=== PATIENT | female | born 1945 | race Caucasian/White ===

== ENCOUNTER 2017-03-30 06:05 | Inpatient (IN) | payer OTHER, SELFPAY ==
[~2017-03-30] VITALS: Ht 167.6 cm; Wt 87.8 kg
[~2017-03-30 06:05] MED LIST: ALBU3IS INH; AZIT500 PO; CALCAVITDA PO; CALGLU500 PO; CENTRUM SILVER1 EAC2 PO; FLUSAL5005 INH; PRED10; TIOT18 INH
[2017-03-30 06:48] LABS: Hematocrit 37.3 % (33.0-51.0); Hemoglobin 11.6 g/dL (11.5-16.0); Mean Corpuscular HGB Conc 31.1 g/dL (31.5-36.5); Mean Corpuscular Volume 103 fL (80-100); RDW Coefficient Variation 11.9 % (11.7-14.2); RDW Standard Deviation 44.9 fL (35.1-46.3); Red Blood Cell Count 3.62 M/mm3 (3.80-5.20); White Blood Cell Count 12.35 K/mm3 (4.00-11.30)
[2017-03-30 06:54] LABS: Mean Platelet Volume 9.8 fL (9.1-12.4); Platelet Count 179 K/mm3 (150-400)
[2017-03-30 06:56] LABS: International Normalized Ratio 1.05; Prothrombin Time Results 10.9 Sec (9.7-11.5)
[2017-03-30 06:56] LABS: pH Blood Arterial 7.22 (7.35-7.45)
[2017-03-30 06:57] LABS: PCO2 Arterial 97.7 mmHg (35-45)
[2017-03-30 07:03] LABS: Alanine Aminotransfer (ALT/SGP 40 U/L (12-78); Albumin/Globulin Ratio 0.6 (0.8-1.8); Alk Phos 98 U/L (50-136); Anion Gap 4 mmol/L (6-16); Aspartate Aminotrans (AST/SGOT 34 U/L (12-37); Bilirubin, Total 0.5 mg/dL (0.1-1.0); Blood Urea Nitrogen 19 mg/dL (8-24); Bun/Creatinine Ratio 22.7 (12.0-20.0); CO2, Blood 35 mmol/L (21-32); Calcium, Blood 9.5 mg/dL (8.5-10.1); Chloride, Blood 101 mmol/L (98-108); Creatinine, Blood 0.84 mg/dL (0.40-1.00); Globulin, Blood 4.7 g/dL (2.2-4.0); Glomerular Filtration Rate >60 (60-); Glucose, Blood 208 mg/dL (70-99); Potassium, Blood 4.6 mmol/L (3.5-5.5); Sodium, Blood 140 mmol/L (136-145); Total Protein, Blood 7.7 g/dL (6.4-8.2); Troponin I <0.015 ng/mL (0.000-0.040)
[2017-03-30 07:13] LABS: BAND PERCENT MAN 11 % (0-8); BASOPHILS PERCENT MAN 0 % (0-2); EOSINOPHILS PERCENT MAN 0 % (0-6); LYMPHOCYTES ABSOLUTE MAN 1.35 K/mm3 (0.84-5.20); LYMPHOCYTES PERCENT MAN 11 % (21-46); MONOCYTES ABSOLUTE MAN 0.98 K/mm3 (0.16-1.47); MONOCYTES PERCENT MAN 8 % (4-13); SEG NEUTROPHILS PERCENT MAN 70 % (41-73); TOTAL CELLS COUNTED 100
[2017-03-30 07:24] LABS: Source, Urine Catheter
[2017-03-30 07:41] LABS: Bilirubin, Urine Neg (Neg); Blood, Urine 3+ (Neg); Glucose Qualitative, Urine 2+ (Neg); Ketones, Urine 1+ (Neg); Leukocyte Esterase, Urine Neg (Neg); Nitrite, Urine Neg (Neg); Protein, Urine 3+ (Neg); Urobilinogen, Urine NORM (Normal)
[2017-03-30 07:56] LABS: Influenza A Negative (NEGATIVE); Influenza B Negative (NEGATIVE)
[2017-03-30 07:59] LABS: Appearance, Urine Clear (Clear); Color, Urine Yellow (P-Yellow)
[2017-03-30 08:01] LABS: Amorphous Light (0-Heavy); Bacteria Few /hpf; Red Blood Cells, Urine 0-2 /hpf (0-2); Squamous Epithelial Cells Few /hpf (Few); White Blood Cells, Urine 0-2 /hpf (0-5)
[2017-03-30 08:02] LABS: Hyaline Casts 0-2 /lpf (0-2)
[2017-03-30] MEDS ORDERED: FURO20 PO (10:35)
[2017-03-30] MEDS ORDERED: POTCHL10ER (10:36)
[2017-03-30 16:25] LABS: PCO2 Arterial 96 mmHg (35-45); PO2 Arterial 62.5 mmHg (80-100)
[2017-03-30 17:05] LABS: PCO2 Arterial 81.6 mmHg (35-45); PO2 Arterial 96.3 mmHg (80-100); pH Blood Arterial 7.27 (7.35-7.45)
[2017-03-31 03:40] LABS: BASOPHILS ABSOLUTE AUTO 0.02 K/mm3 (0.00-0.23); BASOPHILS PERCENT AUTO 0 % (0-2); Hematocrit 33.3 % (33.0-51.0); Hemoglobin 10.5 g/dL (11.5-16.0); LYMPHOCYTES ABSOLUTE AUTO 0.56 K/mm3 (0.84-5.20); LYMPHOCYTES PERCENT AUTO 5 % (21-46); MONOCYTES ABSOLUTE AUTO 0.89 K/mm3 (0.16-1.47); MONOCYTES PERCENT AUTO 9 % (4-13); Mean Corpuscular HGB 31.6 pg (26.0-34.0); Mean Corpuscular HGB Conc 31.5 g/dL (31.5-36.5); Mean Platelet Volume 10.1 fL (9.1-12.4); Platelet Count 191 K/mm3 (150-400); RDW Coefficient Variation 11.8 % (11.7-14.2); RDW Standard Deviation 43.4 fL (35.1-46.3); Red Blood Cell Count 3.32 M/mm3 (3.80-5.20); White Blood Cell Count 10.28 K/mm3 (4.00-11.30)
[2017-03-31 03:42] LABS: EOSINOPHILS PERCENT AUTO 0 % (0-6); IMMATURE GRAN ABSOLUTE AUTO 0.07 K/mm3 (0.00-0.10); IMMATURE GRAN PERCENT AUTO 1 % (0-1); Mean Corpuscular Volume 100 fL (80-100); NEUTROPHILS ABSOLUTE AUTO 8.74 K/mm3 (1.96-9.15); NEUTROPHILS PERCENT AUTO 85 % (41-73)
[2017-03-31 03:56] LABS: Anion Gap 4 mmol/L (6-16); Blood Urea Nitrogen 24 mg/dL (8-24); CO2, Blood 37 mmol/L (21-32); Calcium, Blood 9.5 mg/dL (8.5-10.1); Chloride, Blood 99 mmol/L (98-108); Creatinine, Blood 0.83 mg/dL (0.40-1.00); Glomerular Filtration Rate >60 (60-); Glucose, Blood 226 mg/dL (70-99); Potassium, Blood 4.2 mmol/L (3.5-5.5); Sodium, Blood 140 mmol/L (136-145)
[2017-03-31 04:43] LABS: PCO2 Arterial 64.5 mmHg (35-45); PO2 Arterial 75.3 mmHg (80-100); pH Blood Arterial 7.39 (7.35-7.45)
[2017-04-02 04:36] LABS: Hematocrit 36.3 % (33.0-51.0); Hemoglobin 11.6 g/dL (11.5-16.0); Mean Corpuscular HGB 31.7 pg (26.0-34.0); Mean Corpuscular Volume 99 fL (80-100); Mean Platelet Volume 9.8 fL (9.1-12.4); NRBC ABSOLUTE 0.03 K/mm3 (0.00-0.02); NRBC Auto 0.2 /100 WBC (0.0-0.2); Platelet Count 230 K/mm3 (150-400); RDW Coefficient Variation 11.9 % (11.7-14.2); RDW Standard Deviation 43.6 fL (35.1-46.3); Red Blood Cell Count 3.66 M/mm3 (3.80-5.20); White Blood Cell Count 13.74 K/mm3 (4.00-11.30)
[2017-04-02 04:55] LABS: Anion Gap 4 mmol/L (6-16); Blood Urea Nitrogen 34 mg/dL (8-24); Bun/Creatinine Ratio 40.3 (12.0-20.0); CO2, Blood 37 mmol/L (21-32); Calcium, Blood 9.1 mg/dL (8.5-10.1); Chloride, Blood 100 mmol/L (98-108); Creatinine, Blood 0.84 mg/dL (0.40-1.00); Glomerular Filtration Rate >60 (60-); Glucose, Blood 249 mg/dL (70-99); Potassium, Blood 4.2 mmol/L (3.5-5.5); Sodium, Blood 141 mmol/L (136-145)
[2017-04-02 05:12] LABS: BAND PERCENT MAN 1 % (0-8); BASOPHILS PERCENT MAN 0 % (0-2); EOSINOPHILS PERCENT MAN 0 % (0-6); LYMPHOCYTES ABSOLUTE MAN 1.23 K/mm3 (0.84-5.20); LYMPHOCYTES PERCENT MAN 9 % (21-46); METAMYELOCYTE ABSOLUTE MAN 0.13 K/mm3 (0.00-0.00); METAMYELOCYTE PERCENT MAN 1 % (0-0); MONOCYTES ABSOLUTE MAN 1.23 K/mm3 (0.16-1.47); MONOCYTES PERCENT MAN 9 % (4-13); MYELOCYTE ABSOLUTE MAN 0.13 K/mm3 (0.00-0.00); MYELOCYTE PERCENT MAN 1 % (0-0); NEUTROPHILS ABSOLUTE MAN 10.99 K/mm3 (1.96-9.15); SEG NEUTROPHILS PERCENT MAN 79 % (41-73); TOTAL CELLS COUNTED 100
[2017-04-04] MEDS ORDERED: Augmentin 875-1 EACH PO (11:33)
[2017-04-04] MEDS ORDERED: Anusol-HC 2.5%30 GM PR (11:34)
[2017-04-04] MEDS ORDERED: METO50ER PO (11:35)
[2017-04-04] MEDS ORDERED: Micro-K10 MEQ PO (11:35)
[2017-04-04] MEDS ORDERED: XARELTO20 MG PO (11:36)
[2017-04-04] MEDS ORDERED: PRED20 PO (11:43)
[2017-04-04] MEDS ORDERED: METF500C PO (11:44)
[2017-04-04] MEDS ORDERED: PRED10 (12:06)
== END 2017-04-04 15:54 | disposition home health service (06) | DRG 193 ==
LOC: ER 06:05 → MEDS 09:00 → PCU 09:48 → MEDS 09:54 → PCU 16:42 → MEDS 04-03 14:25 → ENPENDDIS 04-04 10:09 → MEDS 04-04 15:54
PROVIDERS: Emergency Medicine; Hospitalist
PROC: 5A09357 Assistance with Respiratory Ventilation, Less than 24 Consecutive Hours, Continuous Positive Airway Pressure (ICD-10-PCS; principal; 2017-03-30)
DX: J15.4 Pneumonia due to other streptococci (principal); J96.22 Acute and chronic respiratory failure with hypercapnia; J96.21 Acute and chronic respiratory failure with hypoxia; I50.33 Acute on chronic diastolic (congestive) heart failure; J44.0 Chronic obstructive pulmonary disease with (acute) lower respiratory infection; J44.1 Chronic obstructive pulmonary disease with (acute) exacerbation; E11.65 Type 2 diabetes mellitus with hyperglycemia; T38.0X5A Adverse effect of glucocorticoids and synthetic analogues, initial encounter; I48.91 Unspecified atrial fibrillation; I11.0 Hypertensive heart disease with heart failure; Z99.81 Dependence on supplemental oxygen; Z87.891 Personal history of nicotine dependence; Z79.899 Other long term (current) drug therapy; Z88.5 Allergy status to narcotic agent
CPT/HCPCS: 36415; 36600; 51702; 71045; 80048; 80053; 81001; 82803; 82947; 83036; 83605; 83880; 84484; 85025; 85610; 87040; 87070; 87077; 87185; 87205; 87804; 93005; 93010; 93308; 93321; 94010; 94640; 94644; 94660; 94664; 94667; 94760; 94762; 96361; 96365; 96368; 98960; 99285; J0456; J0696; J1650; J1815; J1940; J2920; J7030; J7050

== ENCOUNTER 2018-03-22 20:16 | Inpatient (IN) | payer OTHER ==
[~2018-03-22] VITALS: Ht 162.6 cm; Wt 82.2 kg
[~2018-03-22 20:16] MED LIST changes: +Anusol-HC 2.5%30 GM PR; +Augmentin 875-1 EACH PO; +FURO20 PO; +METF500C PO; +METO50ER PO; +Micro-K10 MEQ PO; +POTCHL10ER; +PRED20 PO; +XARELTO20 MG PO
[2018-03-22 21:16] LABS: BASOPHILS ABSOLUTE AUTO 0.05 K/mm3 (0.00-0.23); BASOPHILS PERCENT AUTO 1 % (0-2); EOSINOPHILS PERCENT AUTO 2 % (0-6); Hematocrit 38.8 % (33.0-51.0); Hemoglobin 11.7 g/dL (11.5-16.0); IMMATURE GRAN ABSOLUTE AUTO 0.02 K/mm3 (0.00-0.10); IMMATURE GRAN PERCENT AUTO 0 % (0-1); LYMPHOCYTES ABSOLUTE AUTO 1.77 K/mm3 (0.84-5.20); LYMPHOCYTES PERCENT AUTO 20 % (21-46); MONOCYTES ABSOLUTE AUTO 0.78 K/mm3 (0.16-1.47); MONOCYTES PERCENT AUTO 9 % (4-13); Mean Corpuscular HGB 32.1 pg (26.0-34.0); Mean Corpuscular HGB Conc 30.2 g/dL (31.5-36.5); Mean Corpuscular Volume 106 fL (80-100); Mean Platelet Volume 9.3 fL (9.1-12.4); NEUTROPHILS ABSOLUTE AUTO 6.07 K/mm3 (1.96-9.15); NEUTROPHILS PERCENT AUTO 68 % (41-73); Platelet Count 204 K/mm3 (150-400); RDW Coefficient Variation 12.4 % (11.7-14.2); RDW Standard Deviation 48.5 fL (35.1-46.3); Red Blood Cell Count 3.65 M/mm3 (3.80-5.20); White Blood Cell Count 8.89 K/mm3 (4.00-11.30)
[2018-03-22 21:38] LABS: Albumin, Blood 3.5 g/dL (3.4-5.0); Albumin/Globulin Ratio 0.9 (0.8-1.8); Bilirubin, Total 0.3 mg/dL (0.1-1.0); Bun/Creatinine Ratio 17.5 (12.0-20.0); Calcium, Blood 9.7 mg/dL (8.5-10.1); Creatinine, Blood 1.03 mg/dL (0.40-1.00); Globulin, Blood 4.1 g/dL (2.2-4.0); Potassium, Blood 4.3 mmol/L (3.5-5.5); Total Protein, Blood 7.6 g/dL (6.4-8.2); Troponin I 0.028 ng/mL (0.000-0.040)
--- NOTE | 2018-03-23 01:05 | NUR ---
ASSUMED PT CARE PT ADMITTED WITH ACUTE ON CHRONIC RESPIRATORY FAILURE WITH HYPOXIA. PT IS ALERT AND ORIENTED X4; ABLE TO MAKE NEEDS KNOWN. PT STATES SHE GENERALLY WEARS 3-4L VIA NC AT HOME; PT IS CURRENTLY ON 4L VIA NC WITH OXYGEN SATURATIONS >90%. PT ARRIVED ON UNIT IN AFIB WITH HR 140'S, WELL ELEVATED SBP >180. MAGNESIUM SULFATE INFUSING VIA 20G LEFT FOREARM IV AT 25MLS/HR. PT C/O SOB UPON EXERTION. [place] [facility] [place] PT APPEARS COMFORTABLE AT THIS TIME.
[2018-03-23] MEDS ORDERED: BUDE.25 NEB (01:32)
[2018-03-23] MEDS ORDERED: Brovana15 MCG/2 M INH (01:33)
[2018-03-23 04:24] LABS: BASOPHILS ABSOLUTE AUTO 0.04 K/mm3 (0.00-0.23); BASOPHILS PERCENT AUTO 0 % (0-2); EOSINOPHILS ABSOLUTE AUTO 0.01 K/mm3 (0.00-0.68); EOSINOPHILS PERCENT AUTO 0 % (0-6); Hemoglobin 11.3 g/dL (11.5-16.0); IMMATURE GRAN ABSOLUTE AUTO 0.03 K/mm3 (0.00-0.10); IMMATURE GRAN PERCENT AUTO 0 % (0-1); LYMPHOCYTES ABSOLUTE AUTO 0.27 K/mm3 (0.84-5.20); LYMPHOCYTES PERCENT AUTO 3 % (21-46); MONOCYTES ABSOLUTE AUTO 0.09 K/mm3 (0.16-1.47); MONOCYTES PERCENT AUTO 1 % (4-13); Mean Corpuscular HGB 31.7 pg (26.0-34.0); Mean Corpuscular HGB Conc 30.5 g/dL (31.5-36.5); Mean Corpuscular Volume 104 fL (80-100); Mean Platelet Volume 9.9 fL (9.1-12.4); NEUTROPHILS PERCENT AUTO 95 % (41-73); Platelet Count 210 K/mm3 (150-400); RDW Coefficient Variation 12.6 % (11.7-14.2); RDW Standard Deviation 47.8 fL (35.1-46.3); Red Blood Cell Count 3.57 M/mm3 (3.80-5.20); White Blood Cell Count 8.94 K/mm3 (4.00-11.30)
[2018-03-23 04:50] LABS: Bun/Creatinine Ratio 18.3 (12.0-20.0); Calcium, Blood 9.4 mg/dL (8.5-10.1); Creatinine, Blood 1.09 mg/dL (0.40-1.00); Potassium, Blood 4.5 mmol/L (3.5-5.5)
--- NOTE | 2018-03-23 06:52 | NUR ---
END OF SHIFT SUMMARY PT HAS REMAINED ALERT AND ORIENTED; ABLE TO MAKE NEEDS KNOWN. OXYGEN HAS NEEDED TO BE TITRATED BETWEEN 3-5L VIA OXYMIZER D/T PT DECREASING TO MID 80'S. PT STATES SHE IS USUALLY ON 3-4L AT BASELINE. CARDIZEM GTT INFUSING AT 10MG/HR; WITH SBP'S 150'S; HR 90-110'S. PT HAS ONE 20G IV IN LEFT FOREARM. PT IS A STANDBY ASSIST WITH TRANSFERS; CONTINENT WITH TWO VOIDS T/O NIGHT. PT DID STATE SOME CONCERNS IN REGARDS TO DISCHARGE AND HER LIVING SITUATION DURING THE ADMIT PROCESS; THEREFORE, CONSULTED ORTHOTICS ASSISTANT. PT IS ABLE TO UTILIZE CALL LIGHT.
--- NOTE | 2018-03-23 10:52 | NUR ---
0730: CARE ASSUMED, ASSESSMENT COMPLETED. PT SITTING UP IN BED AWAKE, DENIES SOB OR CHEST PAIN/PRESSURE, A&OX4. HR 80'S-90'S AFIB, SP02 97% ON 5L/OXYMIZER, CARDIZEM INFUSING AT 10MG/HR. SCDS ON BLE'S, PT DENIES NEEDS OR C/O. 0900: MORNING MEDICATIONS TOLERATED WELL, PT REMAINS SITTING IN BED, DENIES NEEDS OR C/O. 1030: [place] [facility] [place] BECAME SOB WITH EXERTION BUT RECOVERED QUICKLY ON 5L/OXYMIZER, HR REMAINED STABLE T/O ACTIVIY. ORAL CARE COMPLETED, PT UP TO SHOWER ON 5L/HI FLOW NC. PT BACK TO ROOM, VSS, KEPT ON HI FLOW NC WITH HUMIDITY FOR COMFORT, SPO2 95%, HR 80'S. PT RESTING, DENIES NEEDS.
--- NOTE | 2018-03-23 14:27 | NUR ---
1420: HR 60'S - 80'S, CARDIZEM GTT DECREASED TO 8MG/HR. PT UP TO BSC TO VOID, SPO2 DECREASED TO 84%, PT RECOVERS IN 1-2 MINUTES ONCE BACK IN BED RESTING. PT DENIES OTHER NEEDS.
--- NOTE | 2018-03-23 15:05 | NUR ---
1500: CARDIZEM DECREASED TO 6MG/MIN FOR HR 70'S. PT HAS VISITOR AT BEDSIDE, DENIES NEEDS.
--- NOTE | 2018-03-23 16:23 | NUR ---
1620: PT RESTING IN BED WITH EYES CLOSED, HR 70'S, DILTIAZEM GTT SHUT OFF AT THIS TIME, WILL CONTINUE TO MONITOR. VSS, PT DENIES SOB, LS DIMINISHED BUT CLEAR.
--- NOTE | 2018-03-23 17:15 | NUR ---
1715: HR 70'S - 80'S AFIB, CARDIZEM GTT REMAINS OFF.
--- NOTE | 2018-03-23 19:16 | NUR ---
183: PT TO ICU 16 AT THIS TIME, VSS, HR 90'S, CARDIZEM GTT REMAINS OFF. PT SITTING AT BEDSIDE AT THIS TIME EATING DINNER, DENIES NEEDS OR C/O, DENIES SOB. SPO2 MID 90'S ON 2L/HI FLOW NC. 1899: REPORT TO ONCOMING NURSE.
--- NOTE | 2018-03-24 05:45 | NUR ---
[id number]: PT W/DIMINISHED BREATH SOUNDS T/O LUNG DENNY. SPO2 ON 5L N/C = 90-95% AT REST. HR 80-100 AF. DITIAZEM GTT REMAINS OFF, PO METOPROLOL GIVEN. UP W/ ASSIST TO BSC, MILD DESAT TO 85% RECOVERY TO >90% APPROX 1 MIN BUT PT CON'T LABORED USING ACCESSORY MUSCLES SITTING UPRIGHT 10-15 MIN LATER. ABLE TO SLEEP LYING ON SIDE NEARLY FLAT. HS CBG 246 TREATED W/ 2 UNITS PER LOW SLIDING SCALE.
--- NOTE | 2018-03-24 08:05 | NUR ---
DR. MONTGOMERY AT BEDSIDE FOR EVALUATION.
--- NOTE | 2018-03-24 11:15 | NUR ---
ONCOLOGY CONSULT CALL PLACED TO THE [facility], LEFT MESSAGE, FOR PHYSICIAN CONSULT.
--- NOTE | 2018-03-24 12:10 | NUR ---
CALLED REPORT TO VICTORINO INTERNATIONAL STUDENT COUNSELOR, WHOM WILL ASSUME CARE OF PT WHEN TRANSFERRED TO ROOM PCU 7.
--- NOTE | 2018-03-24 12:56 | NUR ---
PT ARRIVES FROM ICU TO PCU 7. PT IS AO X R ON ARRIVAL. SETTLED INTO ROOM. ORIENTED TO UNIT. PT PROVIDED WITH BOTTLED WATER AND GLASS OF ICE AND DENIES ANY FURTHER WANTS OR NEEDS AT THIS TIME. WILL CONTINUE TO MONITOR.
--- NOTE | 2018-03-24 16:23 | NUR ---
END OF SHIFT; PT CAME FROM ICU EARLY AFTERNOON TODAY. SHE HAS PLEASANT AFFECT AND IS COOPERATIVE WITH CARE. PT BECOMES HYPOXIC WHEN AMBULATING TO AND FROM BEDSIDE COMMODE. O2 SATS DOWN TO 85% ON 4 LITERS. PT RECOVERS SLOWLY. WHEN BACK TO BED. HEART RATE IS SINUS TACH. CHEM BG ARE ELEVATED AND PT RECEIVES INSULIN COVERAGE. LUNGS ARE COARSE THROUGHOUT AND DIM IN THE BASES. PT HAS PURSED LIP BREATHING. PT VERY ANXIOUS AT TIMES. WILL CONTINUE TO MONITOR THIS PATINT CLOSELY UNTIL REPORT AND HAND OFF TO NOC SHIFT RN.
--- NOTE | 2018-03-25 05:49 | NUR ---
SHIFT SUMMARY PATIENT PLEASENT AND COOPERATIVE THROUGHOUT THE NIGHT. PATIENT APPEARED TO SLEEP WELL LAST NIGHT. PATIENT STATES SHE IS UNABLE TO SLEEP ON HER LEFT SIDE SINCE SHE GETS DIZZY WHEN SHE LAYS ON THAT SIDE. SHE STATES SHE HAS AN APPOINTMENT WITH A SPECIALIST COMING UP TO ADDRESS THIS ISSUE. PATIENT ALSO HAD AN EPISODE OF PAIN IN HER CHEST LAST NIGHT THAT SHE FELT WAS RELATED TO GAS. PAIN WAS RELIEVED AFTER PATIENT WAS ABLE TO BURP SEVERAL TIMES. NO CHANGES NOTED ON TELE. NO FURTHER COMPLAINTS OF PAIN NOTED THROUGHOUT THE NIGHT. WILL CONTINUE TO MONITOR PATIENT AND REPORT TO ONCOMING RN.
--- NOTE | 2018-03-25 06:54 | NUR ---
HEADACHE: PATIENT HAS COMPLAINTS OF A HEADACHE THIS AM. TYLENOL GIVEN AND A COOL WASH CLOTH PROVIDED FOR HER HEAD. WILL CONTINUE TO MONITOR.
--- NOTE | 2018-03-25 18:48 | NUR ---
Shift Summary No acute changes since initial shift assessment. VSS. In no apparent sign of distress. Pt is A&Ox4. Calls appropriately and repositions self. Denies any pain at this time. Pt titrated between 4-5L O2 NC, depending on activity level and is currently on 5L O2 NC. C/o dyspnea on exertion. Dr. Park also spoke with Dr. Montes De Oca and Dr. Parra today and determined that we would be unable to biopsy mass in lung here, and pt will need to follow-up as outpatient in [place]. Pt may also need a new home O2 eval prior to DC. Pt took shower today and tolerated that activity well. Pt currently resting in bed with call light within reach. Denies any further questions, complaints or requests at this time. Will continue to montior until report is given to ezekiel shift RN.
[2018-03-26 00:32] LABS: PO2 Arterial 82.1 mmHg (80-100)
[2018-03-26 00:33] LABS: PCO2 Arterial > 106 mmHg (35-45); pH Blood Arterial 7.13 (7.35-7.45)
--- NOTE | 2018-03-26 01:41 | NUR ---
HIGH CO2: AT ABOUT 0050 PT INCREASINGLY LETHARGIC AND DIFFICULT TO ARROSE. PT AWAKENS TO STERNAL RUB AND SQUEEZES HANDS/WIGGLES TOES ON COMMAND BUT IS HAVING A HARD TIME ANSWERING QUESTIONS. PT CBG STABLE, RR HAS INCREASED TO 26 AND PT SEEMS TO HAVE AIR HUNGER AND MORE ACCESSORY MUSCLE USE. OTHERWISE VITAL SIGNS ARE STABLE. PT ORIENTED TO PERSON, PLACE. DR. VASQUEZ CALLED AND AN ABG ORDERED, RESULTS CAME BACK WITH PH 7.[address] VASQUEZ NOTIFIED AND PT PLACED ON BIPAP. PT ALSO PLACED BACK ON PCU STATUS, WHEN PREVIOUSLY ON MEDICAL. PT TOLERATING BIPAP AT THIS TIME, AND RESTING. RR 26-30 AND SP02 GREATER THAN 90%. WILL CTM
[2018-03-26 02:03] LABS: PO2 Arterial 102 mmHg (80-100)
[2018-03-26 02:04] LABS: PCO2 Arterial > 106 mmHg (35-45)
[2018-03-26 02:13] LABS: pH Blood Arterial 7.16 (7.35-7.45)
--- NOTE | 2018-03-26 03:10 | NUR ---
ABG REDRAW AT 0200 SHOWS PH 7.16 AND pCO2 >106. DR. VASQUEZ NOTIFIED. PT TOLERATING BIPAP FOR MOST PART, NEEDS REMINED TO KEEP MASK ON AT TIMES, HAS REMOVED X3. PT IS FOLLOWING COMMANDS, CONTINUES TO BE LETHARGIC AND HAS ACCESSORY MUSCLE USE WITH BREATHING AND AIR HUNGER. RR 25, O2 SATS 95%, FI02 40%. RT TO REDRAW AT 0310. WILL CTM. FREQUENTLY ROUNDING.
[2018-03-26 03:23] LABS: PCO2 Arterial > 106 mmHg (35-45); PO2 Arterial 68.1 mmHg (80-100); pH Blood Arterial 7.16 (7.35-7.45)
--- NOTE | 2018-03-26 03:53 | NUR ---
AT 0353 PT OPENS EYES TO NAME AND SQUEEZES THIS RN'S FINGERS ON COMMAND. STILL LETHARGIC AND FALLS ASLEEP EASILY. PT ON BIPAP. FI02 40%, RR 25, O2 SATS 93%, HR AVERAGE 104, AFIB ON TELE. AWAITING STAT CHEST XRAY AND RT TO REDRAW ABG AT ABOUT 0545 PER ORDER. CONTINUING TO MONITOR CLOSLY AND SPEAKING WITH RT, JENARO AND SKIMMER SCOOP OPERATOR, DAN CONCERNING PT STATUS.
--- NOTE | 2018-03-26 04:53 | NUR ---
PT NOT RESPONDING QUICKLY, OPENING EYES AND FOLLOWING SMALL COMMANDS. NOT ANSWERING QUESTIONS. NEW MOLDELING IN BILAT FEET AND ANKLES. TOES ARE BLUE. FIO2 AT 40% AND PT SPO2 85%. CALL MADE TO DR. WALDEN AT 0455, WITH ORDER TO TANSFER TO ICU. SENIOR WEALTH ADVISOR, KATYA MADE AWARE. WILL CTM.
--- NOTE | 2018-03-26 05:43 | NUR ---
PATIENT ARRIVED TO ICU 10 PATIENT ARRIVED TO ICU 10 VIA BED FROM PCU. PATIENT TRANSFERRED TO BED WITH SLIDER SHEET AND PLACED ON ICU MONITORS. BIPAP IN PLACE 16/8 FIO2 40% PATIENT OPENS EYES TO STIMULI FOLLOWING SIMPLE DIRECTIONS. PATIENT FEET UP TO MID CALF MOTTLED WITH POOR CAP REFILL. ABG OBTAINED BY RT.
--- NOTE | 2018-03-26 05:54 | NUR ---
TRANSFER: REPORT GIVEN TO ENTEROSTOMAL NURSE ALEE AT ABOUT 0530. TRANSFERED AT 0550, PT NOW IN ICU10. CALL MADE TO PT , FER TO MAKE HIM AWARE OF PT STATUS AT 0555.
[2018-03-26 05:59] LABS: PCO2 Arterial > 106 mmHg (35-45); PO2 Arterial 65 mmHg (80-100)
[2018-03-26 06:08] LABS: Source, Urine Catheter
[2018-03-26 06:11] LABS: Bilirubin, Urine Neg (Neg); Blood, Urine 2+ (Neg); Glucose Qualitative, Urine Neg (Neg); Ketones, Urine Neg (Neg); Leukocyte Esterase, Urine Neg (Neg); Nitrite, Urine Neg (Neg); Protein, Urine 3+ (Neg); Specific Gravity, Urine 1.025 (1.003-1.022); Urobilinogen, Urine NORM (Normal)
[2018-03-26 06:15] LABS: Appearance, Urine Clear (Clear); Color, Urine Yellow (P-Yellow)
[2018-03-26 06:16] LABS: Squamous Epithelial Cells Few /hpf (Few)
[2018-03-26 06:17] LABS: Bacteria Mod /hpf; Granular Casts 0-2 /lpf ({null, 0}); Hyaline Casts 25-50 /lpf (0-2); Mucus Light ({null, 0-Heavy})
--- NOTE | 2018-03-26 07:30 | NUR ---
FEMALE PATIENT JUST INTUBATED BY DR WIN ALY NOT VENTILATING WELL FLAT. HOB ELEVATED AND VENTILATION IMPROVED. ORAL ET TO TV 300, AC 18, PEEP 6, AND FIO2 50%. LUNGS VERY TIGHT AND DIM. LEVOPHED STARTED PERIPHERALLY. LAF. ONLY RUNNINY ST 1 CATHERINE/MIN. TOTAL OF 1500 OG NS BOLUS GIVEN FOR LOW BP. ALBUMIN 25% ALSO INFUSED. SHEEBA'S DAUGHTER AND AGREED TO A PICC LINE INSERTION. AMANDA FEET ARE STILL CYANOTIC. SHEEBA IS IN AN AT FI WITH RVR AT 120-130. DIGOXIN 0.25 IVP. WILL BE STARTNG A NA BICARD DRIP BECAUSE OF METABOLIC ACIDOSIS. CHEST X RAY DONE FOR PLACEMENT.
--- NOTE | 2018-03-26 07:30 | NUR ---
[id number] DOCTOR WALDEN IN TO SEE PATIENT AND INTUBATION AT 0610 DOCTOR WALDEN IN TO SEE PATIENT GIVEN UPDATE AND RESULTS OF ABG. PATIENT PREP FOR INTUBATION WITH RT AT BEDSIDE. AT 0624 PATIENT MEDICATED WITH ETOM 20MG AND VERSED 1MG THEN INTUBATED WITH 7.5 TUBE TO 24 AT THE TEETH. PATIENT LUNG SOUNDS DECREASED T/O AND MORE SO TO RIGHT LUNG. RT ADJUSTING VENT SETTINGS DUE TO DIFFICULTY VENTILATING PATIENT. PROPOFOL STARTED TO HELP PATIENT RELAX AND FENTANYL IV GIVEN. PATIENT BECOMING HYPOTENSIVE. NS BOLUS STARTED. DOCTOR WALDEN AT BEDSIDE. 699 DOCTOR MONROE NOTIFIED OF PATIENT AND DIFFICULTY WITH VENTILATING. 729 REPORT GIVEN TO VANESSA DIANE. VENT SET AT AC 18, TV 300, PEEP 6, FIO2 50% PROPOFOL ON HOLD, AND NS 500 CC BOLUS INFUSING DUE TO HYPOTENSION. PATIENT OPENING EYES AND PULLING AT RESTRAINTS. OCCASIONALLY COUGH AND GAG ON ET TUBE. PATIENT REMAINS MOTTLED MID CALF TO FEET WITH TOES PURPLE.
[2018-03-26 10:08] LABS: PO2 Arterial 139 mmHg (80-100); pH Blood Arterial 7.24 (7.35-7.45)
[2018-03-26 10:09] LABS: PCO2 Arterial 84 mmHg (35-45)
--- NOTE | 2018-03-26 12:23 | NUR ---
D5W WITH 3 AMP OF SODIUM BICARB INFUSING THRU PICC WHICH WAS CLEARED BY DR MONROE. PAT GIVEN THE FLU SHOOT PER HER , REGITINED DILUTED INJECTIONS TO AREA AROUND THE LAC IV WHICH WAS DCED. TURNED TO RIGHT SIDE. BACK AND BUTTOCKS RUBBED WITH CREAM.
[2018-03-26 16:44] LABS: PO2 Arterial 51.8 mmHg (80-100); pH Blood Arterial 7.35 (7.35-7.45)
[2018-03-26 16:46] LABS: PCO2 Arterial 76.2 mmHg (35-45)
--- NOTE | 2018-03-26 16:58 | NUR ---
DNR BRACELET CHECKED WITH Peggy LONG RN AND VERIFIED WITH PATIENTS BRACELET ID. PUT ON RIGHT WRIST.
--- NOTE | 2018-03-26 17:24 | NUR ---
BP ELEVATED NOW. 180 SYSTOLIC. NORVASC GIVEN DOWN CLAMPED OG. STILL ON PROPOFOL 30MICS/KG/MIN. D5W WITH 3 AMP NA BICARB AT 125/HOUR. VENT RATE DECREASED EARLIER TODAY TO 14, FIO2 30#, PEEP 6 AND TV 300. THIS AFTERNOONS ABG MUCH IMPROVED. TURNED SIDE TO SIDE T/O DAY. SKIN ON BACK AND BUTTOCKS PRISTINE. ALL TOES REMAIN BLUE AND COLD. DAUGHTER MADE PATIENT A DNR. LUNGS STILL VERY TIGHT AND DIM AMANDA LUNGS.
--- NOTE | 2018-03-26 18:31 | NUR ---
ONLY 7 MMHG DIFF IN SYSTOLIC BPS ON BOTH ARMS.
--- NOTE | 2018-03-26 21:42 | NUR ---
CARE ASSUMED REPORT RECEIVED, CARE ASSUMED AT 1900. PT INTUBATED AND SEDATED. MINIMALLY RESPONSIVE. DOES WITHDRAW TO PAIN. VENT SETTINGS TITRATED PER RT. SEE FLOWSHEETS/ASSESSMENTS. BP ELEVATED. DISCUSSED WITH DR. MONROE. PER DR. MONROE, LASIX ORDERED AND HYDRALAZINE TO BE GIVEN IF LASIX INEFFECTIVE. BP IMPROVED AFTER ADMIN. PEDERSEN IN PLACE, LARGE AMOUNTS OF CLEAR URINE DRAINING. BED BATH PROVIDED, PT TOLERATED WELL. DAUGHTER KARLA AT BEDSIDE THIS EVENING. REPORTS FAMILY MEMBERS ARE COMING IN FROM [place]OWN TOMORROW TO SEE PATIENT AND THEY ARE PLANNING TO WITHDRAW CARE PER PATIENT'S WISHES ON SUNDAY MORNING. DAUGHTER UPDATED ON CURRENT PLAN OF CARE AND IS AGREEABLE.
[2018-03-27 03:48] LABS: BASOPHILS ABSOLUTE AUTO 0.01 K/mm3 (0.00-0.23); BASOPHILS PERCENT AUTO 0 % (0-2); EOSINOPHILS PERCENT AUTO 0 % (0-6); Hematocrit 34.8 % (33.0-51.0); Hemoglobin 10.6 g/dL (11.5-16.0); IMMATURE GRAN ABSOLUTE AUTO 0.08 K/mm3 (0.00-0.10); IMMATURE GRAN PERCENT AUTO 1 % (0-1); LYMPHOCYTES ABSOLUTE AUTO 0.27 K/mm3 (0.84-5.20); LYMPHOCYTES PERCENT AUTO 3 % (21-46); MONOCYTES ABSOLUTE AUTO 0.72 K/mm3 (0.16-1.47); MONOCYTES PERCENT AUTO 7 % (4-13); Mean Corpuscular HGB 32.1 pg (26.0-34.0); Mean Corpuscular HGB Conc 30.5 g/dL (31.5-36.5); Mean Corpuscular Volume 106 fL (80-100); Mean Platelet Volume 9.9 fL (9.1-12.4); NEUTROPHILS ABSOLUTE AUTO 9.29 K/mm3 (1.96-9.15); NEUTROPHILS PERCENT AUTO 90 % (41-73); Platelet Count 144 K/mm3 (150-400); RDW Coefficient Variation 12.7 % (11.7-14.2); RDW Standard Deviation 49.3 fL (35.1-46.3); White Blood Cell Count 10.37 K/mm3 (4.00-11.30)
[2018-03-27 04:04] LABS: Blood Urea Nitrogen 58 mg/dL (8-24); Bun/Creatinine Ratio 43.3 (12.0-20.0); Calcium, Blood 8.4 mg/dL (8.5-10.1); Chloride, Blood 93 mmol/L (98-108); Creatinine, Blood 1.34 mg/dL (0.40-1.00); Glomerular Filtration Rate 41 (60-); Glucose, Blood 249 mg/dL (70-99); Phosphorus, Blood 1.5 mg/dL (2.5-4.9); Potassium, Blood 4.7 mmol/L (3.5-5.5); Sodium, Blood 141 mmol/L (136-145)
[2018-03-27 04:18] LABS: Anion Gap Unable to Calculate mmol/L (6-16); CO2, Blood >45 mmol/L (21-32)
[2018-03-27 05:41] LABS: PCO2 Arterial 66.9 mmHg (35-45); PO2 Arterial 63.1 mmHg (80-100); pH Blood Arterial 7.48 (7.35-7.45)
--- NOTE | 2018-03-27 06:23 | NUR ---
SUMMARY THROUGHOUT NIGHT, VENT SETTINGS STABLE. VITALS STABLE. ATTEMPTED SEDATION VACATION THIS MORNING WITH MINIMAL RESPONSE. PT DOES NOT OPEN FOLLOW COMMANDS, CONTINUES TO WITHDRAW TO PAIN, DOES NOT OPEN EYES, BUT DOES GRIMACE WITH VERBAL STIMULI. VENTILATOR WEAN PER RESPIRATORY THERAPY. ABG RESULTS CALLED TO DR. MONROE. BICARB DISCONTINUED. DAUGHTER BACK AT BEDSIDE THIS MORNING AND UPDATED ON EVENTS OF EVENING.
--- NOTE | 2018-03-27 10:57 | NUR ---
0700: CARE ASSUMED, PT RESTING QUIETLY WITH NO GRIMACING/RESTLESSNESS NOTED. DAUGHTER AT BEDSIDE. VENT SETTINGS AC 14, Vt 300, PEEP 6, FIO2 40%, SPO2 88-91%, BREATHS SHALLOW, Vt 260'S - 380'S, RR 18-19. NS TKO, PROPOFOL 30MCG/KG/MIN. 0745: DR. DESOUZA AT BEDSIDE, PT RECEIVING NEB TREATMENT. 0800: ASSESSMENT COMPLETED, SPO2 91-92% AFTER NEB TREATMENT, PT NO LONGER DESATTING INTO 80'S. HR 100-120 AFIB, BP STABLE. LS DIMINISHED T/O WITH FINE EXPIRATORY WHEEZES IN UPPER LOBES. ORAL CARE AND SUCTIONING COMPLETED, GAG REFLEX PRESENT, PHILIP, PT WITHDRAWS FROM PAIN, MOVES ALL EXTREMETIES, DOES NOT OPEN EYES. SMALL AMOUNT OF WHITE SPUTUM FROM ETT SUCTIONING. PT REPOSITIONED. 1000: PT REPOSITIONED AT THIS TIME, FAMILY REMAINS AT BEDSIDE, HR 110'S, OTHER VSS, NO RESTLESSNESS NOTED.
--- NOTE | 2018-03-27 12:36 | NUR ---
1200: VENT SETTINGS UNCHANGED, SPO2 92%, PT'S RR 21 AND SHALLOW, Vt 200-500. PT REPOSITIONED, LS DIMINSHED T/O, NO WHEEZING NOTED AT THIS TIME, NO SPUTUM FROM ETT SUCTIONING. HR 122 AFIB, BP STABLE, AND FAMILY/FRIENDS REMAIN AT BEDSIDE.
--- NOTE | 2018-03-27 15:11 | NUR ---
1400: PT REPOSITIONED, VSS, APPEARS COMFORTABLE, NO GRIMACING OR RESTLESSNESS NOTED. FAMILY REMAINS AT BEDSIDE. SCDS ON, LIMBS ELEVATED, GENERALIZED EDEMA REMAINS PRESENT. LS DIMINISHED T/O.
--- NOTE | 2018-03-27 16:11 | NUR ---
Consent for Care Obtained consent from pts daughter to assist in care of pt with primary RN for DOS 03/28/18.
--- NOTE | 2018-03-27 18:34 | NUR ---
1525: PT'S FAMILY REMAINS AT BEDSIDE, SEDATION VACATION INITIATED. HR 110'S - 120'S, RR 21, SPO2 95%, BP 131/77. VENT SETTINGS AC 14, Vt 300, FIO2 40%, PEEP 6. PROPOFOL 25MCG/KG/MIN, WILL CONTINUE TO TITRATE DOWN FOR VACATION. 1650: PROPOFOL AT 15MCG/KG/MIN, HR 120'S - 150, BP 166/76, RR 22, SPO2 95%. PT RESTLESS AND AGITATED, OPENS EYES TO VERBAL, DOES NOT TRACK, DOES NOT FOLLOW DIRECTIONS. SEDATION VACATION COMPLETED, PROPOFOL INCREASED TO 30MCG/KG/MIN AT THIS TIME. 1730: PT RESTING QUIETLY IN BED, NO LONGER AGITATED OR RESTLESS, VS IMPROVING. FAMILY REMAINS AT BEDSIDE. 1830: PT RESTED T/O SHIFT, APPEARED COMFORTABLE MOST OF DAY, NO PAIN MEDICATIONS ADMINISTERED PT WAS CALM WITH NO GRIMACING. HR 100-120'S, OTHER VSS. PROPOFOL RATE 30MCG/KG/MIN, VENT SETTINGS UNCHANGED. FAMILY REMAINED AT BEDSIDE ALL DAY, WAITING FOR ADDITIONAL FAMILY MEMBERS TO ARRIVE IN AM, THEN THE PLAN REMAINS TO EXTUBATE IN THE LATE MORNING AND INITIATE COMFORT CARE. LS CLEAR BUT DIMINISHED AT THIS TIME, NO SECRETIONS FROM ETT. REPORT TO ONCOMING NURSE.
--- NOTE | 2018-03-27 19:25 | NUR ---
ASSESSMENT PT INTUBATED AND ON [facility] VENT. SEDATED WITH PROPOFOL AT 30 MCQ/KG/MIN. PT PULLS AWAY TO ORAL CARE AND ET SUCTIONING. NOT FOLLOWING INSTRUCTIONS. BILAT WRIST RESTRAINTS ON. LUNGS CLEAR BUT DECREASED IN THE BASES. VENT SETTINGS AC 14 TV 300 PEEP 6 FIO2 40%. SUCTIONED SCANT AMT CLEAR SECRECTIONS VIA ET TUBE. ORAL CARE DONE. HEART RATE IRREGULAR-AFIB. BP STABLE. SCD'S ON. BT+ ABD SOFT AND NONTENDER. OG TUBE CLAMPED. PEDERSEN PATENT AND DRAINING CLEAR YELLOW URINE. IV 18G TO RIGHT HAND SALINE LOCKED, SITE CLEAR, FLUSHED WITHOUT DIFFICULTY. PICC LINE TO RIGHT UPPER ARM DRSG INTACT. PROPOFOL AT 30 MCQ/KG/MIN AND NS AT 10 ML/HR. PT REPOSITIONED WITH HOB UP. FAMILY AT BEDSIDE, QUESTIONS ANSWERED.
--- NOTE | 2018-03-27 23:08 | NUR ---
PAIN MED/ADJUNCT TO SEDATION RESP RATE 24, BP UP 160/71. PT GRIMACING. MED WITH FENTANYL 50 MCQ
--- NOTE | 2018-03-27 23:43 | NUR ---
REASSESSMENT PT CONT INTUBATED AND ON MECH VENT. LUNGS CLEAR BUT DECREASED. NO VENT CHANGES. ORAL CARE DONE. HEART RATE CONT IRREGULAR. BP STABEL. REPOSITIONED WITH HOB UP. SOLUMEDROL GIVEN. BLOOD GLUCOSE 237, SLIDING SCALE INSULIN GIVEN. BT+ ABD SOFT. CONT TO MONITOR
[2018-03-28 03:55] LABS: BASOPHILS ABSOLUTE AUTO 0.01 K/mm3 (0.00-0.23); BASOPHILS PERCENT AUTO 0 % (0-2); EOSINOPHILS PERCENT AUTO 0 % (0-6); Hematocrit 36.4 % (33.0-51.0); Hemoglobin 11.2 g/dL (11.5-16.0); IMMATURE GRAN ABSOLUTE AUTO 0.08 K/mm3 (0.00-0.10); IMMATURE GRAN PERCENT AUTO 1 % (0-1); LYMPHOCYTES ABSOLUTE AUTO 0.28 K/mm3 (0.84-5.20); LYMPHOCYTES PERCENT AUTO 3 % (21-46); MONOCYTES ABSOLUTE AUTO 0.69 K/mm3 (0.16-1.47); MONOCYTES PERCENT AUTO 6 % (4-13); Mean Corpuscular HGB Conc 30.8 g/dL (31.5-36.5); Mean Corpuscular Volume 104 fL (80-100); Mean Platelet Volume 10.2 fL (9.1-12.4); NEUTROPHILS ABSOLUTE AUTO 9.83 K/mm3 (1.96-9.15); NEUTROPHILS PERCENT AUTO 90 % (41-73); Platelet Count 155 K/mm3 (150-400); RDW Coefficient Variation 13.2 % (11.7-14.2); RDW Standard Deviation 50.2 fL (35.1-46.3); White Blood Cell Count 10.89 K/mm3 (4.00-11.30)
--- NOTE | 2018-03-28 04:00 | NUR ---
REASSESSMENT PT CONT INTUBATED AND ON MECH VENT. NO VENT CHANGES. LUNGS CLEAR DECREASED IN THE BASES. HEART RATE IRREGULAR-AFIB. BP STABEL. REPOSITIONED AND ORAL CARE DONE. LABS DRAWN VIA PICC, CLAVES CHANGED.
[2018-03-28 04:13] LABS: Anion Gap 4 mmol/L (6-16); Blood Urea Nitrogen 48 mg/dL (8-24); Bun/Creatinine Ratio 40.7 (12.0-20.0); CO2, Blood 42 mmol/L (21-32); Calcium, Blood 9.2 mg/dL (8.5-10.1); Chloride, Blood 96 mmol/L (98-108); Creatinine, Blood 1.18 mg/dL (0.40-1.00); Glomerular Filtration Rate 48 (60-); Glucose, Blood 250 mg/dL (70-99); Phosphorus, Blood 1.7 mg/dL (2.5-4.9); Potassium, Blood 4.6 mmol/L (3.5-5.5); Sodium, Blood 142 mmol/L (136-145)
--- NOTE | 2018-03-28 09:24 | NUR ---
0730: CARE ASSUMED, ASSESSMENT COMPLETED AND ENTERED BY STUDENT, THIS RN AGREES WITH STUDENT'S ASSESSMENT. HR 100-120'S AFIB, OTHER VSS, VENT SETTINGS AC 14, Vt 300, FIO2 40%, PEEP 6. PT'S RR 18-22, PT'S Vt'S 250-450. LS DIM T/O BUT CLEAR, NO RESTLESSNESS/AGITATION NOTED AT THIS TIME. PROPOFOL INFUSING AT 30MCG/KG/MIN, NS AT TKO. SCD'S ON, EXTREMS ELEVATED, FAMILY AT BEDSIDE.
--- NOTE | 2018-03-28 09:38 | NUR ---
0930: PT'S FAMILY HAVE ARRIVED FROM OUT OF STATE, HAS BEEN AT BEDSIDE TO SEE PT. DAUGHTERS STATE THEY ARE READY FOR PT TO BE EXTUBATED, DR. MONROE NOTIFIED AND CURRENTLY AT BEDSIDE TO TALK WITH FAMILY. 0940: SEDATION DECREASED AT THIS TIME, FAMILY AGREEING TO COMFORT CARE, REFUSING BIPAP AND MONITORING. WILL CONTINUE TO DECREASE SEDATION UNTIL PT IS RESPONSIVE, THEN WILL NOTIFY RT.
--- NOTE | 2018-03-28 10:14 | NUR ---
1005: PT OPENING EYES TO VOICE, MOVES ALL EXTREMETIES. VSS, PROPOFOL OFF AT THIS TIME. 1015: PALLIATIVE CARE AT BEDSIDE.
--- NOTE | 2018-03-28 10:43 | NUR ---
1020: PT BECOMING AGITATED AND RESTLESS OFF OF PROPOFOL, TRYING TO REACH FOR ETT. ATIVAN ADMINISTERED PER ORDERS, RT AT BEDSIDE, VENT CHANGED TO SPONTANEOUS MODE. 1035: PT BREATHING ON OWN WITH VENT ON SPONTANEOUS, SPO2 96% WITH FIO2 40%, RR 24/MIN. ETT SUCTIONED AND THEN DC'D BY RT AT THIS TIME. BUE RESTRAINTS RELEASED, O2 ON PER NC FOR COMFORT. 1045: SPO2 97% 4L/NC, HR 110'S-120'S, RR 28-30, PT RESTING WITH EYES CLOSED, NO GRIMACING OR AGITATION NOTED AT THIS TIME. FAMILY REMAINS AT BEDSIDE. COMFORT MEASURES INITIATED.
--- NOTE | 2018-03-28 11:52 | NUR ---
1145: HR REMAINS 110-120'S AFIB, RR 28, SHALLOW BUT EVEN AND UNLABORED. LS REMAIN CLEAR, DIM IN BASES. PT BRIEFLY OPENING EYES TO VOICE, SAYS "WATER." ICE CHIPS GIVEN, DAUGHTER AT BEDSIDE TO ASSIST PT WITH ICE. PT TOLERATED ONE CHIP WELL, NO CHOKING OR COUGING. WILL CONTINUE TO MONITOR.
--- NOTE | 2018-03-28 12:09 | NUR ---
Initial Visit: Palliative Care Consult for terminal withdrawel of life support and comfort care. Pt is sedated and family members present during visit. Pt's nurse Araseli reports Pt's sedation is being revearsed. Toward beginning of visit Pt starts to appear anxious and agitated. Araseli administers Ativan and within 10 minutes Pt appears comfortable again. Palliative Care nurse Farida present along with this nurse. Education given to family on goals of comfort with symptoms the Pt may experience. Emotional support given. Family appears to be receptive and appropriate with education and information. Family reports the home chosen is [facility] in [place]. Pt extubated and appears comfortable at this time. Plan is to remain available for symptom management and emotional support.
--- NOTE | 2018-03-28 14:11 | NUR ---
1400: PT REPOSITIONED IN BED, HR 110'S-120'S IRREGULAR. RR 26/MIN SHALLOW, EVEN, UNLABORED, O2 REMAINS AT 4L/NC. PT QUIET, NO RESTLESSNESS NOTED, NO GRIMACING OR AGITAION. PT TAKING OCCASIONAL SPOONFULS OF PEPSI PER HER REQUEST.
--- NOTE | 2018-03-28 15:01 | NUR ---
1500: PT BECOMING AGITATED AND RESTLESS, RR 30/MIN, MORPHINE ADMINISTERED PER ORDERS FOR COMFORT. FAMILY REMAINS AT BEDSIDE, WILL CONTINUE TO MONITOR.
--- NOTE | 2018-03-28 15:56 | NUR ---
1555: PT RESTING QUIETLY IN BED WITH NO GRIMACING OR RESTLESSNESS NOTED, RR 24/MIN SHALLOW, EVEN, AND UNLABORED. PT REPOSITIONED IN BED, FAMILY GIVEN REFRESHMENTS REQUESTED, DENY OTHER NEEDS.
--- NOTE | 2018-03-28 17:26 | NUR ---
Large, loving family presence at bedside. They are non-yarsani, but responded well to affirmation of obvious love. Encouraged story-telling and open expression of love/sorrow. Media Sales Executive services will remain available.
--- NOTE | 2018-03-28 17:53 | NUR ---
1730: REPORT GIVEN TO KARMA, MEDICAL FLOOR NURSE. PT RESTING IN BED, APPEARS COMFORTABLE, RESPIRATIONS REMAIN SHALLOW BUT UNLABORED. RR 26, NO GRIMACING OR RESTLESSNESS, FAMILY REMAINS AT BEDSIDE. O2 ON AT 4L/NC. 1740: PT TO ROOM 308 AT THIS TIME, FAMILY AWARE OF TRANSFER.
--- NOTE | 2018-03-28 18:25 | NUR ---
PT HAS BEEN SETTLED INTO NEW ROOM. FAMILY OREINTED TO NEW NURSES. PT RESTING IN BED. PT AT THIS TIME APPEARS TO BE COMFORTABLE AND SLEEPING WILL MONITOR CLOSELY.
--- NOTE | 2018-03-29 04:57 | NUR ---
OFFICE COMMUNICATION PROFESSOR SUMMARY NO ACUTE CHANGES. PT REMAIN ON COMFORT CARE. SLEEPS QUIETLY THROUGH THE NIGHT. PT REPOSITIONED PERMITTED BY FAMILY. GAVE ROXANOL X1 30 MINUTES BEFORE REPOSITIONING. PEDERSEN CATH PATENT AND DRAINING. VERY POLITE AND CARING FAMILY AT BEDSIDE THROUGH THE NIGHT. WILL CONTINUE TO MONITOR.
--- NOTE | 2018-03-29 19:32 | NUR ---
SUMMARY- PT SEMI COMATOSE- NON RESPONSIVE. APPEARED COMFORTABLE THROUGHOUT THE SHIFT. MEDICATED X2 DURING THE SHIFT FOR RR >24. PT HAS SOME COARSE UPPER AIRWAY SECRETIONS. PLACED SCOPOLOMINE PATCH THIS PM. DAUGHTERS AT THE BEDSIDE MOST OF THE SHIFT. INVOLVED AND HAVE SUPPORT THEY NEED, COPING ADEQUATELY. REPORTED TO JEAN MARIE PRINCE RN TO RESUME CARE.
--- NOTE | 2018-03-29 22:13 | NUR ---
PT , VERIFIED BY THIS RN. TIME OF 2129. FAMILY WAS IN THE ROOM AT THE TIME. CHARGE NURSE AND NURSING ANGER CONTROL COUNSELOR INFORMED. THE HOSPITALIST AND CONSULTING DOCTORS WERE ALSO INFORMED. PER FAMILY, PT'S HOME [place] [facility]. SHE IS ALSO AN ORGAN DONOR.
== END 2018-03-29 21:30 | DRG 208 ==
LOC: ER 20:16 → PCU 23:09 → ICUW 23:09 → ICUE 03-23 01:04 → PCU 03-23 01:12 → ICUW 03-23 18:15 → PCU 03-24 12:43 → ICUW 03-26 05:43 → MEDS 03-28 17:43
PROVIDERS: Emergency Medicine; Internal Medicine; Internal Medicine Critical Care Medicine; ADMIT Family Medicine
PROC: 5A09357 Assistance with Respiratory Ventilation, Less than 24 Consecutive Hours, Continuous Positive Airway Pressure (ICD-10-PCS; principal; 2018-03-26)
PROC: 5A1945Z Respiratory Ventilation, 24-96 Consecutive Hours (ICD-10-PCS; 2018-03-26)
PROC: 0BH17EZ Insertion of Endotracheal Airway into Trachea, Via Natural or Artificial Opening (ICD-10-PCS; 2018-03-26)
PROC: 3E033XZ Introduction of Vasopressor into Peripheral Vein, Percutaneous Approach (ICD-10-PCS; 2018-03-26)
PROC: 02HV33Z Insertion of Infusion Device into Superior Vena Cava, Percutaneous Approach (ICD-10-PCS; 2018-03-26)
PROC: 3E02340 Introduction of Influenza Vaccine into Muscle, Percutaneous Approach (ICD-10-PCS; 2018-03-26)
DX: J96.21 Acute and chronic respiratory failure with hypoxia (principal); I50.33 Acute on chronic diastolic (congestive) heart failure; J44.1 Chronic obstructive pulmonary disease with (acute) exacerbation; N17.9 Acute kidney failure, unspecified; E87.2 Acidosis; I11.0 Hypertensive heart disease with heart failure; Z51.5 Encounter for palliative care; I48.91 Unspecified atrial fibrillation; Z99.81 Dependence on supplemental oxygen; Z87.891 Personal history of nicotine dependence; Z79.84 Long term (current) use of oral hypoglycemic drugs; E87.70 Fluid overload, unspecified; R91.8 Other nonspecific abnormal finding of lung field; Z66 Do not resuscitate; J96.22 Acute and chronic respiratory failure with hypercapnia; E66.9 Obesity, unspecified; Z68.30 Body mass index [BMI] 30.0-30.9, adult; Z23 Encounter for immunization; E11.65 Type 2 diabetes mellitus with hyperglycemia
CPT/HCPCS: 31500; 31720; 36415; 36600; 51702; 70450; 71045; 71260; 80048; 80053; 80069; 81001; 82803; 82947; 83880; 84443; 84484; 85025; 90686; 93005; 93010; 94002; 94003; 94640; 94644; 94660; 94760; 96365; 96366; 96375; 99285-25; C1751; C1894; G0008; J0330; J1160; J1815; J1940; J1956; J2060; J2250; J2760; J2920; J2930; J3010; J3475; J7030; J7050; J7060; J7070; P9046; Q9967